=== PATIENT | female | born 1990 | race Caucasian/White ===

== ENCOUNTER 2019-02-02 12:49 | Emergency (ER) | payer MEDICAID ==
[~2019-02-02] VITALS: Ht 152.4 cm; Wt 50.0 kg
--- NOTE | 2019-02-02 14:49 | NUR ---
ULTRA SOUND AT BEDSIDE.
[2019-02-02 15:31] VITALS: BP 108/63
== END 2019-02-02 15:34 | disposition home or self-care (01) ==
LOC: ER 12:49
DX: O20.9 Hemorrhage in early pregnancy, unspecified (principal); Z3A.01 Less than 8 weeks gestation of pregnancy
CPT/HCPCS: 36415; 76801; 76802; 84702; 99284